=== PATIENT | male | born 1990 | race Two or more races ===

== ENCOUNTER 2019-11-14 18:28 | Emergency (ER) | payer SELFPAY ==
[~2019-11-14] VITALS: Ht 180.3 cm; Wt 122.5 kg
[2019-11-14 21:30] VITALS: BP 140/80
== END 2019-11-14 21:33 | disposition home or self-care (01) ==
LOC: ER 18:28
DX: J03.90 Acute tonsillitis, unspecified (principal); R51 Headache; J32.9 Chronic sinusitis, unspecified; Z90.89 Acquired absence of other organs
CPT/HCPCS: 71046; 82962